=== PATIENT | male | born 1965 | race Caucasian/White ===

== ENCOUNTER 2018-12-17 12:43 | Emergency (ER) | payer MEDICARE ==
[2018-12-17 13:38] LABS: CREATININE 0.9 mg/dL (0.5-1.5); POTASSIUM 5.2 mmol/L (3.5-5.1)
[2018-12-17 13:42] LABS: ALBUMIN 3.6 g/dL (3.5-5.0); BILIRUBIN,TOTAL 0.8 mg/dL (0.2-1.0); TOTAL PROTEIN, SERUM 7.1 g/dL (6.0-8.3)
== END 2018-12-17 13:59 | disposition home or self-care (01) ==
LOC: EDH 12:43
DX: S90.811A Abrasion, right foot, initial encounter (principal); I10 Essential (primary) hypertension; Z72.0 Tobacco use; W45.8XXA Other foreign body or object entering through skin, initial encounter; Y93.89 Activity, other specified; Y92.89 Other specified places as the place of occurrence of the external cause; Y99.8 Other external cause status
CPT/HCPCS: 36415; 80053; 87040

== ENCOUNTER 2019-01-02 17:37 | Emergency (ER) | payer MEDICARE | END 2019-01-02 23:44 | disposition home or self-care (01) | LOC: EDH 17:37 | DX: I89.0 Lymphedema, not elsewhere classified (principal); R60.0 Localized edema; I10 Essential (primary) hypertension; F20.9 Schizophrenia, unspecified; Z59.0 Homelessness; Z72.0 Tobacco use | CPT/HCPCS: 93970 ==